=== PATIENT | female | born 1990 | race Caucasian/White ===

== ENCOUNTER 2017-03-28 13:38 | Emergency (ER) | payer OTHER ==
[~2017-03-28] VITALS: Ht 167.6 cm; Wt 62.7 kg
[2017-03-28 13:58] VITALS: BP 123/73
--- NOTE | 2017-03-28 14:46 | NUR ---
Patient ambulated to bed 4. RN evaluating patient at bedside.
--- NOTE | 2017-03-28 14:49 | NUR ---
26F BIB FAMILY C/O RT LOWER SUPRAPUBIC PAIN, RADIATES TO RT GROIN AREA, ACHING/SHARP, 3/10 X TODAY; PT STATES HAS BEEN HAVING RT LOWER SUPRAPUBIC PAIN X 1 WEEK, WORSENING X TODAY; PT STATES NO N/V/D AT THIS TIME; ABDOMEN SOFT, NON-TENDER, ACTIVE BOWEL SOUNDS X 4 QUADRANTS; PT AA&OX4, PERRLA, BL LUNG SOUNDS CLEAR, RR EVEN/UNLABORED, SKIN IS WARM/DRY/INTACT AT THIS TIME; PT RESTING IN BED WITH HOB ELEVATED AND IN LOWEST POSITION; POSITIONED FOR COMFORT; ER MD MADE AWARE OF STATUS. WILL CONTINUE TO MONITOR.
--- NOTE | 2017-03-28 14:56 | NUR ---
ER MD DR. GARY EVALUATING PT AT BEDSIDE.
--- NOTE | 2017-03-28 14:56 | NUR ---
Dr. Cherry evaluating patient at bedside.
[2017-03-28 15:00] LABS: APPEARANCE,URINE CLEAR (CLEAR); BILIRUBIN,URINE NEGATIVE (NEGATIVE); BLOOD, URINE NEGATIVE (NEGATIVE); LEUKOCYTE ESTERASE ,URINE NEGATIVE (NEGATIVE); NITRITE, URINE NEGATIVE (NEGATIVE); PROTEIN,URINE NEGATIVE (NEGATIVE); UGLUCOSE NEGATIVE (NEGATIVE); UROBILINOGEN,URINE 0.2 EU/dL (0.2 - 1)
[2017-03-28] MEDS ORDERED: KETOROLAC 30 MG/ML VIAL IM ONE (15:00)
[2017-03-28] MEDS ORDERED: HYDROcodone/APAP 5/325 MG 1 TAB TAB PO ONE (15:00)
[2017-03-28 15:02] LABS: BACTERIA,URINE None Seen /HPF (None Seen); COLOR,URINE STRAW (YELLOW); RBC,URINE NONE SEEN /HPF (0-5); SQUAMOUS EPITHELIAL CELL,UR None Seen /LPF (0-3 (FEW)); WBC,URINE NONE SEEN /HPF (0-5)
--- NOTE | 2017-03-28 15:19 | NUR ---
PT TAKEN TO US VIA W/C ACCOMPANIED BY [place].
[2017-03-28 15:25] LABS: BASOPHILS # (AUTO) 0.2 K/uL (0.00-0.22); EOSINOPHILS # (AUTO) 0.2 K/uL (0-0.4); EOSINOPHILS % (AUTO) 1.8 % (0.0-4.0); HEMATOCRIT 39.6 % (36-48); LYMPHOCYTES # (AUTO) 1.5 K/uL (2.5-16.5); LYMPHOCYTES % (AUTO) 17.3 % (20.5-51.1); MEAN CORPUSCULAR HEMOGLOBIN 32 pg (27-31); MEAN CORPUSCULAR HGB CONC 33 g/dL (33-37); MEAN CORPUSCULAR VOLUME 96 fL (80-94); MONOCYTES # (AUTO) 0.8 K/uL (0.8-1.0); MONOCYTES % (AUTO) 9.6 % (1.7-9.3); NEUTROPHILS % (AUTO) 69.3 % (42.2-75.2); PLATELET COUNT (AUTO) 210 K/uL (140-450); RED BLOOD CELL COUNT(AUTO) 4.14 MIL/uL (4.20-5.40); RED CELL DISTRIBUTION WIDTH 11.9 % (11.6-13.7); WHITE BLOOD COUNT (AUTO) 8.7 K/uL (4.8-10.8)
--- NOTE | 2017-03-28 15:39 | NUR ---
PT APPEARS TO BE RESTING COMFORTABLY IN BED;VSS; RR EVEN/UNLABORED; NO ACUTE DISTRESS NOTED AT THIS TIME; FAMILY AT BEDSIDE; WILL CONTINUE TO MONITOR.
[2017-03-28 15:46] LABS: ALBUMIN 3.6 g/dL (3.4-5.0); ANION GAP 12.8 (8-16); CALCIUM 8.8 mg/dL (8.5-10.1); CARBON DIOXIDE 26.2 mmol/L (21-32); CREATININE 0.7 mg/dL (0.6-1.3); TOTAL BILIRUBIN 0.3 mg/dL (0.0-1.0); TOTAL PROTEIN, SERUM 7.2 g/dL (6.4-8.2)
[2017-03-28 15:55] LABS: PARTIAL THROMBOPLASTIN TIME 23.9 secs (22-35.6); PROTHROMBIN TIME 10.2 secs (10.8-13.4)
--- NOTE | 2017-03-28 16:30 | NUR ---
PT APPEARS TO BE RESTING COMFORTABLY IN BED;VSS; RR EVEN/UNLABORED; NO ACUTE DISTRESS NOTED AT THIS TIME; FAMILY AT BEDSIDE; WILL CONTINUE TO MONITOR.
[2017-03-28 17:00] VITALS: BP 123/73
--- NOTE | 2017-03-28 17:00 | NUR ---
Patient discharged with v/s stable. Written and verbal after care instructions given and explained. Patient alert, oriented and verbalized understanding of instructions. Ambulatory with steady gait. All questions addressed prior to discharge. ID band removed. Patient advised to follow up with PMD. Rx of ACETAMINOPHEN 500MG TAB & NAPAROSYN 500MG TAB given. Patient educated on indication of medication including possible reaction and side effects. Opportunity to ask questions provided and answered.
== END 2017-03-28 17:00 | disposition home or self-care (01) ==
LOC: MED 13:38
DX: N83.201 Unspecified ovarian cyst, right side (principal); Z88.6 Allergy status to analgesic agent
CPT/HCPCS: 36415; 76830; 80053; 81001; 81025; 85025; 85610; 85730; 86886; 86900; 86901; 96372; 99285; J1885